=== PATIENT | male | born 1955 | race Caucasian/White ===

== ENCOUNTER 2023-12-21 23:20 | Emergency (ER) | payer BC, OTHER ==
[2023-12-21 23:37] VITALS: BP 151/84; PULSE 75; RESP 18; TEMP 97.8; BMI 38.2
[2023-12-22] MEDS ORDERED: ACETAMINOPHEN 500 MG TABLET (FP) ONE (00:25)
[2023-12-22] MEDS: ACETAMINOPHEN 500 MG TABLET (FP) PO ONE (00:27)
[2023-12-22 01:12] LABS: BASO % 0.6 % (0-2.0); EOS % 2.8 % (0-4.5); HEMATOCRIT 39.4 % (35.4-49); HEMOGLOBIN 13.4 GM/dL (11.7-16.9); LYMPH % 33.2 % (8-40); MCH 30.7 pg (25.7-33.7); MCHC 33.9 g/dl (32.0-35.9); MEAN CELL VOLUME 90.5 fl (80-96); MEAN PLT VOLUME 9.1 fl (7.5-11.1); MONO % 10.5 % (3.8-10.2); NEUT % 52.9 % (42.8-82.8); PLATELET COUNT 170 10^3/uL (134-434); RBC 4.35 M/mm3 (4.00-5.60); RDW 14.5 % (11.9-15.9); WHITE BLOOD COUNT 6.3 K/mm3 (4.0-10.0)
[2023-12-22 01:29] LABS: POTASSIUM 3.5 mmol/L (3.5-5.1)
[2023-12-22 01:30] LABS: CALCIUM 8.1 mg/dL (8.5-10.1)
[2023-12-22 01:31] LABS: ALBUMIN 3.7 g/dl (3.4-5.0); BLOOD UREA NITROGEN 21.6 mg/dL (7-18)
[2023-12-22 01:35] LABS: CREATININE 0.7 mg/dL (0.55-1.3)
[2023-12-22 01:36] LABS: BILIRUBIN,TOTAL 0.4 mg/dL (0.2-1); TOT PROT 6.5 g/dl (6.4-8.2)
== END 2023-12-22 01:51 | disposition home or self-care (01) ==
LOC: FER 23:20
DX: M94.0 Chondrocostal junction syndrome [Tietze] (principal); R07.89 Other chest pain
CPT/HCPCS: 36415; 71045-TC-FY; 80053; 84484; 85025; 93005; 99285-25